=== PATIENT | male | born 1980 | race Caucasian/White ===

== ENCOUNTER 2023-05-17 07:48 | Emergency (ER) | payer OTHER, SELFPAY ==
[2023-05-17 07:49] VITALS: BP 128/85; PULSE 68; RESP 16; TEMP 36.9; O2SAT 98; BMI 34.9
[2023-05-17 07:54] VITALS: BP 139/90; PULSE 75; RESP 18; O2SAT 98
--- NOTE | 2023-05-17 07:55 | XR_ITS ---
WS: [id number] Portable AP upright chest, 05/17/2023 Clinical Data: chest Comparison: None. Findings: No nodules, masses or effusions are seen. The heart is normal. The pulmonary vascularity is not increased. No pneumonia or pneumothorax is seen. Impression: Negative chest.
--- NOTE | 2023-05-17 07:55 | ECG_ITS ---
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 Measurements Intervals [place] Rate: 72 P: 50 ND: 189 QRS: 53 QRSD: 109 T: 31 QT: 374 QTc: 411 Interpretive Statements SINUS RHYTHM WITH SINUS ARRHYTHMIA No previous ECG available for comparison Electronically Signed On 05-17-2023 11:18:39 CDT by Howie Lawson M.D. [email or web address] health care systemDebtLESS Communitypremier health [facility].nooked/store/NU/[id number] f
[2023-05-17 08:09] LABS: Basophils # 0.1 10^3/uL (0.0-0.1); Basophils % 0.5 %; Eosinophils # 0.3 10^3/uL (0.0-0.8); Eosinophils % 2.7 %; Lymphocytes # 2.7 10^3/uL (0.8-4.8); Lymphocytes % 26.8 %; Mean Corpuscular HGB Conc 33.5 g/dL (30-55); Mean Corpuscular Volume 86.7 fl (82-101); Mean Platelet Volume 10.2 fL (7.4-10.4); Monocytes # 0.8 10^3/uL (0.2-0.9); Monocytes % 8.2 %; Neutrophils # 6.09 10^3/uL (1.8-7.7); Neutrophils % 61.2 %; Nucleated Red Blood Cells % 0 %; Platelet Count 305 10^3/cmm (157-399); Red Blood Count 4.96 10^6/uL (3.85-5.65); Red Cell Distribution Width 12.3 % (12.1-15.1); White Blood Count 9.96 10^3/uL (3.29-11.43)
--- NOTE | 2023-05-17 08:12 | ED_ITS ---
HPI - Chest Pain General: Chief Complaint: Chest Pain Stated Complaint: chest pressure Time Seen by Provider: 05/17/23 07:55 Source: patient Mode of arrival: EMS History of Present Illness: 42-year-old male who presents emergency room complaining of lightheadedness dizziness last couple of days along with some left sided chest discomfort rating up in the neck and jaw. No fever sweats chills no diaphoresis. He does relate some shortness of breath but he equates that with some anxiety over the discomfort he has had. He is not diabetic he is not a smoker he has no known history of coronary artery disease hypertension. He does relate some family history of heart disease. MD complaint: chest pain Onset (ago): day(s) Timing of current episode: episodic Prior episodes: Yes Onset: during rest Pain location: left chest Pain radiation: neck and jaw/teeth Severity: mild Quality: aching and heaviness Relieving factors: nothing Exacerbating factors: nothing Associated symptoms: Deny abdominal pain, diaphoresis, dyspnea, fever(s), leg edema, nausea, palpitations, sense of impending doom, syncope or vomiting Review of Systems Const: Denies: fever(s), chills, fatigue, malaise or diaphoresis ENMT: Denies: throat pain, ear or mastoid pain, nasal discharge or nasal congestion Card: Reports: chest pain; Denies: palpitations, irregular heart rhythm, edema, syncope, dyspnea on exertion or orthopnea Resp: Denies: dyspnea GI: Denies: abdominal pain, nausea or vomiting : Denies: flank pain, dysuria, urinary frequency or urinary urgency Skin/Breast: Denies: rash or pruritus Physical Exam 2 Const: GENERAL APPEARANCE: cooperative and comfortable ORIENTATION/CONSCIOUSNESS: Yes awake, Yes oriented to person, Yes oriented to place and Yes oriented to time HENMT: COMMON NORMALS: normocephalic, atraumatic and hearing grossly normal bilaterally HEAD & SCALP: normocephalic and atraumatic Resp: COMMON NORMALS: normal respiratory effort, No retractions, No use of accessory muscles and clear to auscultation bilaterally AUSCULTATION: clear to auscultation bilaterally Cardio: COMMON NORMALS: regular rate, regular rhythm and No murmurs present (Cardio) RATE: regular rate RHYTHM: regular rhythm GI: COMMON NORMALS: Soft to palpation and No hepatosplenomegaly present AUSCULTATION: Yes normoactive bowel sounds PALPATION: Yes Soft to palpation, No Tenderness to palpation present (GI), No Guarding due to palpation present (GI) and Yes No hepatosplenomegaly present Extremity: COMMON NORMALS: normal to inspection, capillary refill normal, no clubbing, cyanosis or edema, no calf tenderness and no pedal edema Neuro: SENSORIUM/ORIENTATION: Yes oriented to person, Yes oriented to place and Yes oriented to time Skin: COMMON NORMALS: no rashes or lesions noted GENERAL SKIN EXAM: no rashes or lesions noted Course Vital Signs: Vital signs: Vital Signs Temperature 98 F 05/17/23 10:37 Pulse Rate 78 05/17/23 10:37 Respiratory Rate 18 05/17/23 10:37 Blood Pressure 121/90 05/17/23 10:37 Pulse Oximetry 98 05/17/23 10:37 Oxygen Delivery Me thod Room Air 05/17/23 07:54 MDM - Chest Pain Medical Decision Making Troponins EKG is unremarkable. EKG shows normal sinus rhythm no acute ST changes. EKG is reviewed as found in the chart. Suspect this is more GI related his description of does not sound like acute coronary syndrome. We will discharge patient home baby aspirin daily start him on omeprazole 40 mg daily. Patient lives in [place] does not wish to return here for any further evaluation recommend that he follow-up with his primary care doctor to discuss possibility of a stress testing being completed. If his any worsening or change symptoms return to the nearest emergency room avoid any normal activities. Medical Records I reviewed the patient's medical records. Lab Data I reviewed the patient's lab results. 05/17/23 08:01 05/17/23 08:01 Laboratory Results WBC 9.96 10^3/uL (3.29-11.43) 05/17/23 08:01 RBC 4.96 10^6/uL (3.85-5.65) 05/17/23 08:01 Hgb 14.40 g/dL (11.27-16.99) 05/17/23 08:01 Hct 43.0 % (37-53) 05/17/23 08:01 MCV 86.7 fl (82-101) 05/17/23 08:01 MCH 29.0 pg (27-33) 05/17/23 08:01 MCHC 33.5 g/dL (30-55) 05/17/23 08:01 RDW 12.3 % (12.1-15.1) 05/17/23 08:01 Plt Count 305 10^3/cmm (157-399) 05/17/23 08:01 MPV 10.2 fL (7.4-10.4) 05/17/23 08:01 Neut % (Auto) 61.2 % 05/17/23 08:01 Lymph % (Auto) 26.8 % 05/17/23 08:01 Simpson % (Auto) 8.2 % 05/17/23 08:01 Eos % (Auto) 2.7 % 05/17/23 08:01 Baso % (Auto) 0.5 % 05/17/23 08:01 Neut # (Auto) 6.09 10^3/uL (1.8-7.7) 05/17/23 08:01 Lymph # (Auto) 2.7 10^3/uL (0.8-4.8) 05/17/23 08:01 Simpson # (Auto) 0.8 10^3/uL (0.2-0.9) 05/17/23 08:01 Eos # (Auto) 0.3 10^3/uL (0.0-0.8) 05/17/23 08:01 Baso # (Auto) 0.1 10^3/uL (0.0-0.1) 05/17/23 08:01 Nucleated RBC % (auto) 0 % 05/17/23 08:01 Nucleated RBCs # 0.0 /100WBC 05/17/23 08:01 Sodium 134 mmol/L (136-145) L 05/17/23 08:01 Potassium 3.8 mmol/L (3.5-5.1) 05/17/23 08:01 Chloride 101 mmol/L (98-107) 05/17/23 08:01 Carbon Dioxide 22 mmol/L (22-29) 05/17/23 08:01 Anion Gap 14.8 (5-19) 05/17/23 08:01 BUN 14 mg/dL (6-20) 05/17/23 08:01 Creatinine 1.1 mg/dL (0.7-1.2) 05/17/23 08:01 GFR Calculation 73.8 mL/min (90-130) L 05/17/23 08:01 Glucose 132 mg/dL (65-115) H 05/17/23 08:01 Calculated Osmolality 280 mOsm/kg (285-295) L 05/17/23 08:01 Calcium 9.1 mg/dL (8.5-10.5) 05/17/23 08:01 Total Bilirubin 0.2 mg/dL (0.15-1.2) 05/17/23 08:01 AST 13 U/L (0-40) 05/17/23 08:01 ALT 27 U/L (0-41) 05/17/23 08:01 Alkaline Phosphatase 66 U/L (40-130) 05/17/23 08:01 Troponin T Baseline < 6 ng/L (0-15) 05/17/23 08:01 Troponin T 120 Minute 6.38 ng/L (0-15) 05/17/23 09:52 Delta Troponin T 0.39207 ABS# (0-10) 05/17/23 09:52 Total Protein 7.2 g/dL (6.6-8.7) 05/17/23 08:01 Albumin 4.3 g/dL (3.5-5.2) 05/17/23 08:01 Globulin 2.9 g/dL (1.3-4.6) 05/17/23 08:01 All radiology interpretation(s) finalized by discharge Discharge Plan Discharge Patient Disposition: Home Clinical Impression: Atypical chest pain Condition: Stable Prescriptions: New aspirin 81 mg tablet,delayed release (DR/EC) 81 mg PO DAILY Qty: 30 0RF omeprazole 40 mg capsule,delayed release(DR/EC) 40 mg PO DAILY 84 Days Qty: 90 0RF No Action Aspir-81 81 mg Tablet,Delayed Release (Dr/Ec) 162 mg PO .ONE TIME DOSE Discharge Orders: Discharge ED (Routine); Ordered 05/17/23 Ordered By: Nick Barajas Discharge Diet: Usual diet Discharge Activity: Limit activity as instructed Patient Instructions: Opioid Safety, Pain Management Activity Restrictions/Additional Instructions: Avoid strenuous activities. To follow-up with your primary care doctor to discuss having a stress test completed as an outpatient. Recommend to take a baby aspirin daily and omeprazole 40 mg once daily Coding Level of Care Code ED Cleat Feeder for Chg Parth
--- NOTE | 2023-05-17 08:29 | PC.PHAR ---
pt states he is not currently taking rx or otc meds-pt states he did takes two 81mg aspirins as a one time dose today-pt states he was on a testosterone injection 1ml every 2 weeks and also a vitamin d2 50,000 units every week for 6 weeks pt states not had since February 2023-pt states he moved here and hasnt found a pcp to have blood work done to see if he needed to be back on them-
[2023-05-17 08:35] LABS: Alanine Aminotransferase 27 U/L (0-41); Albumin Level 4.3 g/dL (3.5-5.2); Alkaline Phosphatase 66 U/L (40-130); Anion Gap 14.8 (5-19); Aspartate Amino Transferase 13 U/L (0-40); Blood Urea Nitrogen 14 mg/dL (6-20); Calcium 9.1 mg/dL (8.5-10.5); Carbon Dioxide 22 mmol/L (22-29); Chloride 101 mmol/L (98-107); Globulin 2.9 g/dL (1.3-4.6); Glomerular Filtration Rate 73.8 mL/min (90-130); Glucose 132 mg/dL (65-115); Osmolality Calculated 280 mOsm/kg (285-295); Potassium 3.8 mmol/L (3.5-5.1); Sodium 134 mmol/L (136-145); Total Bilirubin 0.2 mg/dL (0.15-1.2); Total Protein 7.2 g/dL (6.6-8.7)
[2023-05-17 08:36] LABS: Troponin(5th) Baseline < 6 ng/L (0-15)
--- NOTE | 2023-05-17 09:55 | ECG_ITS ---
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 Measurements Intervals [place] Rate: 72 P: 43 FL: 185 QRS: 39 QRSD: 103 T: 26 QT: 375 QTc: 413 Interpretive Statements SINUS RHYTHM Compared to ECG 05/17/2023 07:51:07 Sinus arrhythmia no longer present Electronically Signed On 05-17-2023 11:19:04 CDT by Howie Lawson M.D. [email or web address] medical centerIFCO Systemsselect medical [facility] [place] shawLightera/store/[id number]
[2023-05-17 10:21] LABS: Troponin 5 2HR 6.38 ng/L (0-15); Troponin 5 2HR Delta 0.38001 ABS# (0-10)
[2023-05-17 10:37] VITALS: BP 121/90; PULSE 78; RESP 18; TEMP 36.6; O2SAT 98
== END 2023-05-17 10:38 | disposition home or self-care (01) ==
PROVIDERS: Emergency Provider Family Medicine
DX: R07.89 Other chest pain (principal)
CPT/HCPCS: 36415; 71045; 80053; 84484; 85025; 93005; 99285